=== PATIENT | female | born 1960 | race Two or more races ===

== ENCOUNTER 2024-07-12 10:30 | Emergency (ER) | payer OTHER ==
[~2024-07-12] VITALS: Ht 152.4 cm; Wt 59.1 kg
[~2024-07-12 10:30] MED LIST: ATOR10TA PO; BENZ-247 PO; CALC-1038 PO; DIVA-112 PO; ERGO500093 PO; LORA-1370 PO; METF-1211 PO; MULT-660 PO; RISP-31 PO; TRAZ-252 PO
[2024-07-12 10:44] VITALS: TEMP 98.7
[2024-07-12 10:54] VITALS: BP 135/61; PULSE 79; RESP 18; O2SAT 97
[2024-07-12 11:13] LABS: COVID AG,FIA SOURCE NASAL SWAB
[2024-07-12 11:36] LABS: SARS-COV2 (COVID) ANTIGEN,FIA Negative (Negative)
[2024-07-12 11:37] LABS: INFLUENZA TYPE A NEGATIVE FOR TYPE A (NEGATIVE); INFLUENZA TYPE B NEGATIVE FOR TYPE B (NEGATIVE)
[2024-07-12] MEDS ORDERED: ACET-66 PO (13:17)
[2024-07-12] MEDS ORDERED: GUAIFDM PO (13:17)
== END 2024-07-12 13:40 | disposition home or self-care (01) ==
LOC: EMS 10:33
DX: J06.9 Acute upper respiratory infection, unspecified (principal); E11.9 Type 2 diabetes mellitus without complications; Z79.84 Long term (current) use of oral hypoglycemic drugs; Z79.899 Other long term (current) drug therapy; Z20.822 Contact with and (suspected) exposure to COVID-19
CPT/HCPCS: 71045; 87804; 99284